=== PATIENT | male | born 1995 | race American Indian/Alaskan Native ===

== ENCOUNTER 2022-01-20 10:32 | Emergency (ER) | payer SELFPAY ==
[2022-01-20 11:54] VITALS: BP 161/108
[2022-01-20] MEDS ORDERED: ACETAMINOPHEN 500 MG TAB PO ONE (12:01)
[2022-01-20] MEDS ORDERED: KETOROLAC 30 MG/1 ML INJ IM ONE (12:01)
--- NOTE | 2022-01-20 12:06 | Emergency Department Report ---
ED General Adult HPI - General Chief complaint: Back Pain/Injury Stated complaint: BACK PAIN PUI?: No Time Seen by Provider: 01/20/22 11:54 Source: patient, RN notes reviewed Mode of arrival: Ambulatory Limitations: No Limitations - History of Present Illness Initial comments: The patient is a 26-year-old gentleman with a body mass index of 31.3, who otherwise denies chronic medical issues, and specifically denies IV drug use, who presents to the ER today with complaint of paralumbar lower back pain, after twisting and lifting heavy objects while helping somebody to move. Today is day 2 of symptoms. He denies fever, nausea, vomiting, diarrhea, bladder/bowel retention incontinence and saddle anesthesia, as well as weakness and numbness. The patient reports he has not taken anything for pain. He reports the pain does not radiate anywhere. The pain increases with palpation and range of motion. It decreases with rest and position. He denies additional injuries and complaints. -: days(s) Location: back Radiation: non-radiation Quality: aching Consistency: other Improves with: other Worsens with: other Associated Symptoms: denies other symptoms - Related Data Previous Rx's Medication Instructions Recorded Last Taken Type Acetaminophen [Non-Aspirin Extra 650 mg PO Q6HR PRN #30 tablet 01/20/22 Unknown Rx Strength] Ibuprofen [Motrin] 600 mg PO Q8H PRN #30 tablet 01/20/22 Unknown Rx Allergies Allergy/AdvReac Type Severity Reaction Status Date / Time No Known Allergies Allergy Verified 01/20/22 11:51 ED Review of Systems ROS: Stated complaint: BACK PAIN Other details as noted in HPI Comment: All other systems reviewed and negative Musculoskeletal: back pain ED Past Medical Hx - Medications Home Medications: Home Medications Medication Instructions Recorded Confirmed Last Taken Type Acetaminophen [Non-Aspirin Extra 650 mg PO Q6HR PRN #30 tablet 01/20/22 Unknown Rx Strength] Ibuprofen [Motrin] 600 mg PO Q8H PRN #30 tablet 01/20/22 Unknown Rx ED Physical Exam - General Limitations: No Limitations General appearance: alert, anxious, obese - Head Head exam: Present: atraumatic, normocephalic - Eye Eye exam: Present: normal appearance, EOMI. Absent: nystagmus - ENT ENT exam: Present: normal exam, normal orophraynx, mucous membranes moist, normal external ear exam - Neck Neck exam: Present: normal inspection, full ROM. Absent: tenderness, meningismus - Respiratory Respiratory exam: Present: normal lung sounds bilaterally. Absent: respiratory distress, wheezes, rales, rhonchi, stridor, decreased breath sounds - Cardiovascular Cardiovascular Exam: Present: regular rate, normal rhythm, normal heart sounds. Absent: bradycardia, tachycardia, irregular rhythm, systolic murmur, diastolic murmur, rubs, gallop - GI/Abdominal GI/Abdominal exam: Present: soft. Absent: distended, tenderness, guarding, rebound, rigid, pulsatile mass - Rectal Rectal exam: Present: deferred - Extremities Exam Extremities exam: Present: normal inspection, full ROM, other (2+ pulses noted in the bilateral upper and lower extremities. There is no palpable cord. negative Homans sign. Muscular compartments are soft. The pelvis is stable.). Absent: pedal edema, calf tenderness - Back Exam Back exam: Present: normal inspection, muscle spasm, paraspinal tenderness. Absent: tenderness, CVA tenderness (R), CVA tenderness (L), vertebral tenderness - Neurological Exam Neurological exam: Present: alert, oriented X3, normal gait, reflexes normal, other (No facial droop. Tongue midline. Extraocular movements intact bilaterally. Facial sensation intact to light touch in V1, V2, V3 distribution bilaterally. 5 and a 5 strength in 4 extremities. Sensation intact to light touch in 4 extremities.). Absent: motor sensory deficit - Psychiatric Psychiatric exam: Present: normal affect, normal mood - Skin Skin exam: Present: warm, dry, intact, normal color. Absent: rash ED Course Vital Signs 01/20/22 11:52 Temperature 98.2 F Pulse Rate 69 Respiratory 16 Rate Blood Pressure 161/108 [Left] O2 Sat by Pulse 97 Oximetry ED Medical Decision Making - Lab Data Vital Signs 01/20/22 11:52 Temperature 98.2 F Pulse Rate 69 Respiratory 16 Rate Blood Pressure 161/108 [Left] O2 Sat by Pulse 97 Oximetry - Medical Decision Making Differential diagnosis, including but not limited to: Sprain, strain, mechanical back pain Assessment and plan: 26-year-old gentleman, who was afebrile, with reassuring vital signs, ambulatory with a steady gait, with no pulsatile abdominal mass, no midline spinal tenderness, appropriate strength, sensation and reflexes, this is most likely mechanical back pain after heavy lifting. History and physical not supportive of epidural compression syndrome, AAA, or emergent etiology of back pain. Patient educated as to the natural history of mechanical back pain. Tylenol, Motrin, avoidance of heavy lifting, rest, ice, compression, elevation, physical activities as tolerated, return cautions reviewed. Patient articulates understanding. Critical care attestation.: If time is entered above; I have spent that time in minutes in the direct care of this critically ill patient, excluding procedure time. ED Disposition Clinical Impression: Lower back pain Disposition: HOME / SELF CARE / HOMELESS Is pt being admited?: No Does the pt Need Aspirin: No Condition: Good Instructions: Back Exercises, [id number], RICE Therapy for Routine Care of Injuries Additional Instructions: As we discussed, pain typically gets worse before it gets better after heavy lifting and mechanical lower back pain. Rest and avoid heavy lifting, and avoid strenuous physical activity. Engage in physical activities as tolerated. For pain, the patient can take ibuprofen, 600 mg with food every 6 hours, alternating with acetaminophen, 650 mg every 4 hours, also which can be purcha sed [id number]. Return to the ER right away with new pain, worsened pain, migration of pain, fevers, chills, confusion, weakness, numbness, intractable nausea or vomiting, severe chest pain, or severe abdominal pain. Alternate ice packs and heat packs as needed for physical pain. Participate in physical activities as tolerated. Follow-up with your primary care doctor within the next week. Referrals: [facility] [place] [Provider Group] - 7-10 days Forms: Work/School Release Form(ED)
== END 2022-01-20 12:44 | disposition home or self-care (01) ==
LOC: ED 10:32
DX: M54.50 Low back pain, unspecified (principal)
CPT/HCPCS: 96372; 99282; J1885